=== PATIENT | male | born 1955 | race Hispanic/Latino ===

== ENCOUNTER → 2021-03-01 | Outpatient (CLI) | payer OTHER ==
[~2021-03-01] MED LIST: IOHEXOL-350 75 ML VIAL IV ONE
== END | disposition home or self-care (01) ==
LOC: RAH 12:41
PROVIDERS: ATTEND Otolaryngology
DX: R22.0 Localized swelling, mass and lump, head (principal)
CPT/HCPCS: 70491; Q9967

== ENCOUNTER 2021-03-10 12:00 | Inpatient (IN) | payer OTHER ==
[~2021-03-10] VITALS: Ht 170.2 cm; Wt 69.9 kg
[2021-03-10 16:31] LABS: BASOPHILS % (AUTO) 0.4 % (0.0-5.0); HEMATOCRIT 48.1 % (42-54); LYMPHOCYTES % (AUTO) 29.4 % (21.0-51.0); MEAN CORPUSCULAR HEMOGLOBIN 29.3 pg (27.0-33.0); MEAN CORPUSCULAR HGB CONC 33.1 g/dL (32.0-36.0); MEAN CORPUSCULAR VOLUME 88.7 fL (79-99); MONOCYTES % (AUTO) 7.9 % (3.0-13.0); NEUTROPHILS % (AUTO) 59.9 % (40.0-77.0); PLATELET COUNT (AUTO) 301 K/uL (130-400); RED BLOOD CELL COUNT(AUTO) 5.42 MIL/uL (4.50-6.20); RED CELL DISTRIBUTION WIDTH 13.2 % (11.0-15.5)
[2021-03-10 16:36] VITALS: BP 151/79
[2021-03-10 16:42] LABS: CREATININE 0.9 mg/dL (0.5-1.5); POTASSIUM 4.1 mmol/L (3.5-5.1)
[2021-03-10 16:45] LABS: INR 1.05 (0.85-1.15); PROTHROMBIN TIME 11.4 SEC (9.6-11.6)
[2021-03-10 16:46] LABS: PARTIAL THROMBOPLASTIN TIME 26.9 SEC (26.3-35.5)
[2021-03-10] MEDS ORDERED: IBUP-2077 PO (16:49)
[2021-03-10] MEDS ORDERED: LEVO50TA4 PO ×2 (16:49)
[2021-03-10] MEDS ORDERED: BUSP5TAB3 PO (16:49)
[2021-03-10] MEDS ORDERED: METF-444 PO (16:49)
[2021-03-10] MEDS ORDERED: OMEG-148 PO (16:49)
[2021-03-10] MEDS ORDERED: MELA5CAP PO (16:49)
[2021-03-14] VITALS (24 sets, daily range): BP systolic 107–156; BP diastolic 64–92
[2021-03-14] MEDS ORDERED: BUPIVACAINE/EPI/PF 0.5% 30ML VIAL IJ ONE (08:15)
[2021-03-14] MEDS ORDERED: LIDOCAINE PF 100MG/5ML (2%) SYRINGE 5ML ONE (09:14)
[2021-03-14] MEDS ORDERED: MIDAZOLAM HCL 1 MG/ML 2ML VIAL ONE (09:14)
[2021-03-14] MEDS ORDERED: PROPOFOL 10 MG/ML 20ML VIAL IV ONE ×2 (09:15→11:07)
[2021-03-14] MEDS ORDERED: ONDANSETRON 4MG INJ ONE (09:15)
[2021-03-14] MEDS ORDERED: ROCURONIUM 10MG/1ML SYR 10 MG/ML ML ONE ×2 (09:16→10:54)
[2021-03-14] MEDS ORDERED: CLINDAMYCIN IVPB 600MG/50ML 50 ML IV ONE (09:33)
[2021-03-14] MEDS ORDERED: FENTANYL CITRATE PF 50 MCG/1 ML 2ML VIAL ONE (09:57)
[2021-03-14] MEDS ORDERED: PHENYLEPHRINE HCL 10 MG/ML 1ML VIAL IV ONE (10:13)
[2021-03-14] MEDS ORDERED: ESMOLOL HCL 10 MG/ML 10 ML VIAL ONE ×2 (10:17→12:03)
[2021-03-14] MEDS ORDERED: NICARDIPINE 25MG INJ IV ONE (11:09)
[2021-03-14] MEDS ORDERED: OXYMETAZOLINE HCL SPRAY 15 ML BOTTLE ONE (11:14)
[2021-03-14] MEDS ORDERED: NEOSTIGMINE 5MG/5ML SYR IV ONE (12:15)
[2021-03-14] MEDS ORDERED: GLYCOPYRROLATE 1 MG/5 ML SYRINGE ONE (12:15)
[2021-03-14] MEDS ORDERED: MEPERIDINE-PF 25 MG/ML SYG ONE ×2 (12:17→12:42)
[2021-03-14] MEDS ORDERED: IBUPROFEN 800 MG TAB PO SCH (14:02)
[2021-03-14] MEDS ORDERED: IBUPROFEN 800 MG TAB PO PRN (14:30)
[2021-03-14] MEDS ORDERED: PHARMACY COMMUNICATION MISC SCH (14:30)
[2021-03-14] MEDS ORDERED: ONDANSETRON 4MG INJ IVP PRN (14:30)
[2021-03-14] MEDS: HYDROMORPHONE 0.5 MG SYG (0.5MG/0.5ML) IVP PRN ×2 (14:59→20:51)
[2021-03-14] MEDS ORDERED: (Melatonin 5 MG) PO SCH (21:00)
[2021-03-15] MEDS: IBUPROFEN 100 MG/5 ML SUSP UDCUP PO SCH ×2 (00:17→06:00)
[2021-03-15 03:47] VITALS: BP 136/80
[2021-03-15] MEDS ORDERED: LEVOTHYROXINE 50 MCG TABLET PO SCH (06:30)
[2021-03-15 08:02] VITALS: BP 120/73
[2021-03-15] MEDS ORDERED: IBUPROFEN 800 MG TAB PO SCH (08:33)
[2021-03-15] MEDS: FISH OIL 1000 MG/CAP PO SCH ×2 (08:59→09:07)
[2021-03-15] MEDS ORDERED: BUSPIRONE HCL 5 MG TABLET PO SCH (09:00)
[2021-03-18] MEDS ORDERED: LEVOTHYROXINE 50 MCG TABLET PO SCH (06:30)
[2021-03-19] MEDS ORDERED: LEVOTHYROXINE 50 MCG TABLET PO SCH (06:30)
== END 2021-03-15 10:30 | disposition home or self-care (01) | DRG 138 ==
LOC: EDSTATUS 12:00 → DAHIP 03-14 07:48 → 3BH 03-14 14:02
PROVIDERS: ADMIT Otolaryngology; ATTEND Otolaryngology
PROC: 0CB70ZZ Excision of Tongue, Open Approach (ICD-10-PCS; principal; 2021-03-14 09:30)
DX: C02.1 Malignant neoplasm of border of tongue (principal); C06.9 Malignant neoplasm of mouth, unspecified; F41.9 Anxiety disorder, unspecified; E11.9 Type 2 diabetes mellitus without complications; Z20.822 Contact with and (suspected) exposure to COVID-19; Z88.8 Allergy status to other drugs, medicaments and biological substances
CPT/HCPCS: 36415; 71045; 80048; 82948; 85025; 85610; 85730; 87635; 93005; A4606; G0378; J1170; J2001; J2175; J2250; J2370; J2405; J2704; J2710; J3010; J3490